=== PATIENT | female | born 1945 | race Caucasian/White ===

== ENCOUNTER 2017-07-14 07:31 | Day surgery (SDC) | payer BC ==
[2017-07-13 09:38] VITALS: BMI 32.5
[2017-07-14 08:36] VITALS: TEMP 98.3
[2017-07-14] MEDS ORDERED: ACETAMINOPHEN 325 MG TABLET (FP) ONE (11:33)
[2017-07-14 11:51] VITALS: BP 147/59; PULSE 86
[2017-07-14 12:34] LABS: PLEURAL FLUID COLOR YELLOW
[2017-07-14 12:35] LABS: PLEURAL FLUID APPEARANCE CLOUDY; PLEURAL FLUID RBC 2766 /mm3
[2017-07-14 13:15] LABS: GLUCOSE,PLEURAL FLUID 89.498; TOTAL PROTEIN,PLEURAL FLUID 5.158
[2017-07-14 15:41] LABS: PLEURAL FLUID LYMPHOCYTES 29 %; PLEURAL FLUID MACROPHAGES 11 %; PLEURAL FLUID NEUTROPHIL 4 %
[2017-07-14 15:42] LABS: PLEURAL FLUID MESOTHELIAL 56 %
--- NOTE | 2017-07-19 14:14 | PATH ---
Cytology Non-Gynecological Report Patient Name: JOE BAILON [facility]. Rec. #: [id number] /Age/Gender: 1945 (Age: 72) / F Account: [id number] Location: RADIOLOGY Taken: 07/14/2017 Received: 07/14/2017 Reported: 07/19/2017 Physicians: Mariana Anderson M.D. Specimen(s) Received A: RIGHT PLEURAL FLUID B: RIGHT PLEURAL FLUID Clinical History Lung mass Final Diagnosis A & B. PLEURAL FLUID, RIGHT, THORACENTESIS: SATISFACTORY FOR EVALUATION POSITIVE FOR MALIGNANT CELLS. ADENOCARCINOMA. MALIGNANT EPITHELIAL CELLS DISPERSED AGGREGATES AND CLUSTERS IN A BACKGROUND OF MACROPHAGES AND RARE MESOTHELIAL CELLS. Comment: Immunohistochemical stains performed at [place], [place] ([id number]) and interpreted at [facility] show the tumor cells are positive for MOC31, Walter-EP4, JULIA, TTF-1 and Napsin-A, while negative for p40. Rare mesothelial cells are positive for D2-40 and calretinin. Macrophages are positive for CD68. Overall immunophenotype is consistent with lung origin. Office of Dr. Anderson informed that significant findings will be faxed (agencyQ). Electronically Signed Uma Landers M.D. Addendum Reported: 07/22/2017 Addendum Diagnosis PD-L1 (DAKO 22C3) immunohistochemical stain performed and interpreted at [facility] [place], [place] ([id number]) RESULTS: LOW PD-L1 EXPRESSION. TUMOR PROPORTION SCORE (TPS) RESULT: 4% See [facility] report for details ([id number]). Uma Landers M.D. Addendum Reported: 08/10/2017 Addendum Diagnosis NextGen Sequencing Lung Major Panel: Integrated Molecular Report performed and interpreted at [place], [place] ([id number]) RESULTS: Mutational Analysis Gene(s) WITH Detected Alterations: NRAS p.Q61H (c.183A>T) (Pathogenic) BRAF p.D594G (c.1781A>G) (Pathogenic) Genes with NO Detected Alterations of the Amino Acid Sequence: ALK, EGFR, ERBB2, KRAS, MET, PIK3CA, RET, TP53 INTERPRETATION OF RESULTS: Mutation is detected in the BRAF gene at p.D594G with frequency of 20.4%. Mutation is detected in the NRAS gene at p.Q61H with frequency of 20.0% Somatic mutations in NRAS have been found in about ~1% of all NSCLC. The NRAS mutations are more commonly found in lung cancers with adenocarcinoma histology and in those with a history of smoking. Currently, there are no direct anti-NRAS therapies available, but preclinical models show potential sensitivity to MEK inhibitors. See [facility] report for additional details ([id number]). Uma Landers M.D. Gross Description A. Approximately 1500 cc of yellow fluid received fresh. Two cytofunnels and one cellblock prepared. B. Approximately 50 cc of yellow fluid received fixed in 50% alcohol. Two cytofunnels and one cellblock prepared.
== END 2017-07-14 12:30 | disposition home or self-care (01) ==
LOC: JRADIR 07:31
PROVIDERS: ATTEND Internal Medicine
PROC: 0W993ZZ Drainage of Right Pleural Cavity, Percutaneous Approach (ICD-10-PCS; principal; 2017-07-14)
PROC: BB4BZZZ Ultrasonography of Pleura (ICD-10-PCS; 2017-07-14)
DX: C38.4 Malignant neoplasm of pleura (principal); J91.0 Malignant pleural effusion
CPT/HCPCS: 71045-TC-FY; 76942; 82042; 82150; 82945; 83615; 84157; 84311; 84478; 87070; 87075; 87102; 87116; 87205; 87206; 87210; 88108; 88305-TC; 89051

== ENCOUNTER 2017-07-18 08:23 | Day surgery (SDC) | payer BC ==
[2017-07-15 17:34] VITALS: BMI 32.5
[2017-07-18 14:17] VITALS: BP 124/73; PULSE 100; TEMP 98.2
--- NOTE | 2017-07-20 17:28 | PATH ---
Surgical Pathology Report Patient Name: JOE BAILON [facility]. Rec. #: [id number] /Age/Gender: 1945 (Age: 72) / F Account: [id number] Location: RADIOLOGY CAT S Taken: 07/18/2017 Received: 07/18/2017 Reported: 07/20/2017 Physicians: Simi Becerra M.D. Specimen(s) Received RIGHT LUNG BIOPSY Clinical History 72 year old female with large right central mass Final Diagnosis LUNG, RIGHT, BIOPSY: INVASIVE ADENOCARCINOMA, MODERATELY DIFFERENTIATED. Comment: Immunohistochemical stains performed at [place], [place] ([id number]) and interpreted at [facility] show the tumor is positive for TTF-1 and Napsin-A. PDL-1 and lung molecular markers are pending and will be reported separately. Prior cytology ([id number]) was reviewed and appears morphologically similar. Findings discussed with Dr. Anderson. Electronically Signed Uma Landers M.D. Addendum Reported: 07/22/2017 Addendum Diagnosis PD-L1 (DAKO 22C3) immunohistochemical stain performed and interpreted at [place], [place] ([id number]) RESULTS: TUMOR INSUFFICIENT FOR EVALUATION. See [facility] report for details ([id number]). Comment: In view of insufficient tumor for testing in this material, PDL-1 testing was performed on the pleural fluid ([id number]). See separate report for details. Uma Landers M.D. Gross Description Received fresh labeled "right lung biopsy," is a 1.0 cm in length x 0.1 cm in diameter thomas, cylindrical portion of soft tissue. The specimen is submitted in toto in one cassette. /07/18/201707/18/2017
== END 2017-07-18 16:50 | disposition home or self-care (01) ==
LOC: JRADIR 08:23
PROVIDERS: ATTEND Internal Medicine
PROC: 0BBK3ZX Excision of Right Lung, Percutaneous Approach, Diagnostic (ICD-10-PCS; principal; 2017-07-18 10:00)
DX: C34.91 Malignant neoplasm of unspecified part of right bronchus or lung (principal)
CPT/HCPCS: 32405; 71250-TC; 76098-TC-FY; 77012-TC; 87899; 88305-TC; 94760